=== PATIENT | female | born 1965 | race Caucasian/White ===

== ENCOUNTER 2017-02-28 16:23 | Emergency (ER) | payer OTHER ==
[2017-02-28 17:40] VITALS: BP 134/87
[2017-02-28] MEDS ORDERED: Acetaminophen 325 MG Tab PO ONE (18:16)
--- NOTE | 2017-02-28 18:21 | EDM.PDOC ---
ED HPI GENERAL MEDICAL PROBLEM - General Chief Complaint: Lower Extremity Injury/Pain Stated Complaint: FELL OFF HORSE INJURED RT FOOT ANKLE Time Seen by Provider: 02/28/17 18:16 Source of Information: Reports: Patient History Limitations: Reports: No Limitations - History of Present Illness INITIAL COMMENTS - FREE TEXT/NARRATIVE: pt arrived with pain on the inside of the rt ankle. pt was riding a horse and she lost control and there was some twisting of the ankle. She is able to wt bear.. There is swelling but no brusing on the ankle. Onset: Today Duration: Hour(s): Location: Reports: Lower Extremity, Right Associated Symptoms: Reports: No Other Symptoms Right Ankle Pain Score (Numeric/FACES): 6 - Related Data Allergies Allergy/AdvReac Type Severity Reaction Status Date / Time Penicillins Allergy Anaphylactic Verified 02/28/17 17:40 Shock Past Medical History Psychiatric History: Reports: Depression Social & Family History - Tobacco Use Smoking Status *Q: Unknown Ever Smoked Review of Systems - Review of Systems Review Of Systems: See Below Constitutional: Reports: No Symptoms Eyes: Reports: No Symptoms Ears: Reports: No Symptoms Nose: Reports: No Symptoms Mouth/Throat: Reports: No Symptoms Respiratory: Reports: No Symptoms Cardiovascular: Reports: No Symptoms GI/Abdominal: Reports: No Symptoms Musculoskeletal: Reports: Other (pain in the rt ankle on the inner aspect, There is minimal swelling and no bruising. ) ED EXAM, GENERAL - Physical Exam Exam: See Below Free Text/Narrative:: Pt arrived with pain in the rt ankle. She twisted the ankle while riding horse. Exam Limited By: No Limitations General Appearance: Alert, Mild Distress Ears: Normal TMs Nose: Normal Inspection Extremities: Other ( rt ankle has tenderness at the ligament atachment , there is minimal swelling. There is no bruising present. A xray was obtained which did not reveal any fractures or chips present. ) Neurological: Alert, Oriented, Normal Cognition Course - Vital Signs Last Recorded V/S: Last Vital Signs Temp 37.5 C 02/28/17 17:34 Pulse 73 02/28/17 17:34 Resp 15 02/28/17 17:34 BP 134/87 02/28/17 17:34 Pulse Ox 99 02/28/17 17:34 - Orders/Labs/Meds Orders: Active Orders 24 hr Category Date Time Status Ankle Min 3V Rt [CR] Stat Exams 02/28/17 18:15 Ordered Meds: Medications Discontinued Medications Generic Name Dose Route Start Last Admin Trade Name Jabier PRN Reason Stop Dose Admin Acetaminophen 650 mg 02/28/17 18:16 02/28/17 18:35 Tylenol PO 02/28/17 18:17 Not Given NOW ONE Departure - Departure Time of Disposition: 18:41 Disposition: Home, Self-Care 01 Condition: Fair Clinical Impression: Sprain of right ankle - Discharge Information Referrals: PCP,None [Primary Care Provider] - Forms: ED Department Discharge Care Plan Goals: stirup splint, cool pack, crutches were offered but she is going to do minimal wt bearing. tylenol and motrin for pain. - My Orders Last 24 Hours: My Active Orders 02/28/17 18:15 Ankle Min 3V Rt [CR] Stat - Assessment/Plan Last 24 Hours: My Active Orders 02/28/17 18:15 Ankle Min 3V Rt [CR] Stat
--- NOTE | 2017-03-02 09:20 | CR ---
Ankle Min 3V Rt HISTORY: Injury COMPARISON: None FINDINGS: Soft tissue swelling. No fracture or dislocation. Good joint space preservation.
== END 2017-02-28 19:10 | disposition home or self-care (01) ==
LOC: JP.ED 16:23
DX: S93.401A Sprain of unspecified ligament of right ankle, initial encounter (principal); F32.9 Major depressive disorder, single episode, unspecified; Z88.0 Allergy status to penicillin; X50.1XXA Overexertion from prolonged static or awkward postures, initial encounter; Y93.52 Activity, horseback riding
CPT/HCPCS: 73610-26-RT; 73610-RT; 99284